=== PATIENT | male | born 1985 | race Hispanic/Latino ===

== ENCOUNTER 2021-02-02 13:16 | Emergency (ER) | payer SELFPAY ==
[~2021-02-02] VITALS: Ht 172.7 cm; Wt 86.2 kg
[2021-02-02] MEDS ORDERED: ACETAMINOPHEN 500 MG TABLET PO ONE (14:00)
[2021-02-02] MEDS ORDERED: CEFTRIAXONE 1G VIAL IM ONE (14:00)
[2021-02-02 14:17] LABS: BASOPHILS % (AUTO) 0.7 % (0.0-5.0); EOSINOPHILS % (AUTO) 1.5 % (0.0-8.0); HEMATOCRIT 39.7 % (42-54); LYMPHOCYTES % (AUTO) 33.6 % (21.0-51.0); MEAN CORPUSCULAR HGB CONC 35.3 g/dL (32.0-36.0); MEAN CORPUSCULAR VOLUME 90.8 fL (79-99); MONOCYTES % (AUTO) 9.1 % (3.0-13.0); NEUTROPHILS % (AUTO) 54.8 % (40.0-77.0); PLATELET COUNT (AUTO) 221 K/uL (130-400); RED BLOOD CELL COUNT(AUTO) 4.37 MIL/uL (4.50-6.20); RED CELL DISTRIBUTION WIDTH 12.2 % (11.0-15.5); WHITE BLOOD COUNT (AUTO) 7.4 K/uL (4.8-10.8)
[2021-02-02 14:38] LABS: CREATININE 1.2 mg/dL (0.5-1.5); POTASSIUM 3.6 mmol/L (3.5-5.1)
[2021-02-02] MEDS ORDERED: CEPH500B PO (15:03)
[2021-02-02] MEDS ORDERED: SULF1TAB42 PO (15:03)
[2021-02-02] MEDS ORDERED: ACET-66 PO (15:03)
[2021-02-02 15:20] VITALS: BP 123/75
== END 2021-02-02 15:29 | disposition home or self-care (01) ==
LOC: EDH 13:16
DX: L03.115 Cellulitis of right lower limb (principal)
CPT/HCPCS: 36415; 80048; 85025; 96372; 99283; J0696

== ENCOUNTER 2022-05-01 17:25 | Emergency (ER) | payer OTHER ==
[~2022-05-01] VITALS: Ht 172.7 cm; Wt 89.8 kg
[~2022-05-01 17:25] MED LIST: ACET-66 PO; CEPH500B PO; SULF1TAB42 PO
[2022-05-01] MEDS ORDERED: IOHEXOL-350 50ML VIAL IV ONE (17:47)
[2022-05-01 17:57] LABS: BASOPHILS % (AUTO) 0.3 % (0.0-5.0); EOSINOPHILS % (AUTO) 0.4 % (0.0-8.0); HEMATOCRIT 39.9 % (42-54); LYMPHOCYTES % (AUTO) 16.2 % (21.0-51.0); MEAN CORPUSCULAR HEMOGLOBIN 32.2 pg (27.0-33.0); MEAN CORPUSCULAR HGB CONC 34.8 g/dL (32.0-36.0); MEAN CORPUSCULAR VOLUME 92.4 fL (79-99); MONOCYTES % (AUTO) 7.2 % (3.0-13.0); NEUTROPHILS % (AUTO) 75.4 % (40.0-77.0); PLATELET COUNT (AUTO) 246 K/uL (130-400); RED BLOOD CELL COUNT(AUTO) 4.32 MIL/uL (4.50-6.20); RED CELL DISTRIBUTION WIDTH 11.9 % (11.0-15.5); WHITE BLOOD COUNT (AUTO) 13.9 K/uL (4.8-10.8)
[2022-05-01 18:10] LABS: CREATININE 1.2 mg/dL (0.5-1.5); POTASSIUM 3.7 mmol/L (3.5-5.1)
[2022-05-01 18:24] LABS: ALBUMIN 4.2 g/dL (3.5-5.0); TOTAL PROTEIN, SERUM 7.2 g/dL (6.0-8.3)
[2022-05-01 18:31] VITALS: BP 139/60
[2022-05-01] MEDS ORDERED: 0.9%NACL 1000ML 1,000 ML IV ONE (19:00)
[2022-05-01] MEDS ORDERED: NAPR375T6 PO (19:06)
[2022-05-01] MEDS ORDERED: KETOROLAC 30MG VIAL (30MG/ML) IVP ONE (19:30)
== END 2022-05-01 19:45 | disposition home or self-care (01) ==
LOC: EDH 17:25
DX: S80.01XA Contusion of right knee, initial encounter (principal); S30.1XXA Contusion of abdominal wall, initial encounter; R74.8 Abnormal levels of other serum enzymes; Z79.899 Other long term (current) drug therapy; V02.90XA Pedestrian on foot injured in collision with two- or three-wheeled motor vehicle, unspecified whether traffic or nontraffic accident, initial encounter; Y93.89 Activity, other specified; Y92.89 Other specified places as the place of occurrence of the external cause; Y99.8 Other external cause status
CPT/HCPCS: 99285; 71260; 96374; 96361; 82550; 80053; 85025; 36415; 73562; 73030; 74177; J7030; J1885; Q9967